=== PATIENT | female | born 1995 | race Caucasian/White ===

== ENCOUNTER 2019-12-20 05:35 | Outpatient (CLI) | payer MEDICAID ==
[~2019-12-20] VITALS: Ht 165 cm; Wt 103.8 kg
[2019-12-20] MEDS ORDERED: SERT100T8 PO (13:54)
[2019-12-20] MEDS ORDERED: DIPH25CA79 PO (13:54)
[2019-12-20] MEDS ORDERED: FAMO20TA3 PO (13:54)
[2019-12-20] MEDS ORDERED: PREN-8 PO (13:54)
[2019-12-26] MEDS ORDERED: DCS100C PO (07:19)
[2019-12-26] MEDS ORDERED: IBUP-844 PO (07:19)
[2019-12-26] MEDS ORDERED: ACHD5005 PO (07:19)
== END 2019-12-20 14:11 ==
LOC: PREOP 05:35
PROVIDERS: ATTEND Obstetrics & Gynecology
DX: Z01.818 Encounter for other preprocedural examination (principal)

== ENCOUNTER 2019-12-26 01:35 | Inpatient (IN) | payer MEDICAID ==
[2019-12-26] VITALS (10 sets, daily range): BP systolic 130–144; BP diastolic 67–93
[~2019-12-26] VITALS: Ht 165.1 cm; Wt 104.2 kg
[~2019-12-26 01:35] MED LIST: DIPH25CA79 PO; FAMO20TA3 PO; PREN-8 PO; SERT100T8 PO
[2019-12-26] MEDS ORDERED: ceFAZolin INJECTION 1,000 MG ONE (06:06)
[2019-12-26] MEDS ORDERED: METOCLOPRAMIDE INJ 10 MG/2 ML (REGLAN) ONE (06:06)
[2019-12-26] MEDS ORDERED: LACTATED RINGERS 1,000 ML IV ONE (06:06)
[2019-12-26] MEDS ORDERED: FAMOTIDINE 20MG/2ML IV (PEPCID) ONE (06:06)
[2019-12-26] MEDS ORDERED: CITRIC ACID/SOB CIT (BICITRA) 30 ML UDC ONE (06:06)
[2019-12-26] MEDS ORDERED: WATER (STERILE) FOR INJECTION 10 ML ONE (06:07)
[2019-12-26] MEDS ORDERED: LACTATED RINGERS 1,000 ML IV PRN ×2 (06:18)
--- NOTE | 2019-12-26 06:20 | NUR ---
SARAY KAPLAN presented to unit via AMBULATORY from ED, accompanied by S.O., with c/o PREVIOUS. SARAY KAPLAN weighed, gowned, voided, and to bed. EFHM and TOCO applied, VS taken. SARAY KAPLAN oriented to bed controls, call light, TV, heat, and A/C controls.
[2019-12-26] MEDS ORDERED: CATHETER FLUSH 10 ML SYR IV PRN (06:30)
[2019-12-26] MEDS ORDERED: FAMOTIDINE 20MG/2ML IV (PEPCID) IVP ONE (06:30)
[2019-12-26] MEDS ORDERED: METOCLOPRAMIDE INJ 10 MG/2 ML (REGLAN) IV ONE (06:30)
[2019-12-26] MEDS ORDERED: CITRIC ACID/SOB CIT (BICITRA) 30 ML UDC PO ONE (06:30)
[2019-12-26] MEDS ORDERED: ceFAZolin INJECTION 1,000 MG in WATER (STERILE) FOR INJECTION 10 ML IV ONE (06:30)
[2019-12-26 06:53] LABS: BASOPHILS % (AUTO) 0 % (0-10); EOSINOPHILS # (AUTO) 0.1 10^3/uL (0.0-0.3); EOSINOPHILS % (AUTO) 1 % (0-10); HEMATOCRIT 36 % (35-52); HEMOGLOBIN 12.4 G/DL (11.5-16.0); LYMPHOCYTES % (AUTO) 13 % (12-44); MEAN CORPUSCULAR HEMOGLOBIN 33 PG (25-34); MEAN CORPUSCULAR HGB CONC 35 G/DL (32-36); MEAN CORPUSCULAR VOLUME 94 FL (80-99); MEAN PLATELET VOLUME 9.6 FL (7.4-10.4); MONOCYTES # (AUTO) 0.6 X 10^3 (0.0-1.0); MONOCYTES % (AUTO) 8 % (0-12); NEUTROPHILS # (AUTO) 6.1 X 10^3 (1.8-7.8); NEUTROPHILS % (AUTO) 78 % (42-75); PLATELET COUNT 159 10^3/uL (130-400); WHITE BLOOD COUNT 7.7 10^3/uL (4.3-11.0)
[2019-12-26] MEDS ORDERED: BUPIVACAINE 0.5% 30 ML (SENSORCAINE) VIAL ONE (06:56)
[2019-12-26] MEDS ORDERED: fentaNYL INJECTION 100 MCG/2 ML AMP ONE (06:56)
[2019-12-26] MEDS ORDERED: OXYTOCIN PRE-MIX DRIP 1,000 ML IV ONE (06:56)
--- NOTE | 2019-12-26 06:57 | NUR ---
DR. NGUYEN AT BEDSIDE.
--- NOTE | 2019-12-26 07:05 | NUR ---
report received from gurdeep delcid; report also given to TECHNICAL EDUCATION TEACHER at this time.
--- NOTE | 2019-12-26 07:13 | History & Physical-OB ---
OB - Chief Complaint & HPI Date/Time Date of Admission: Date of Admission: Dec 26, 2019 at 06:12 Date seen by a Provider: Dec 26, 2019 Time Seen by a Provider: 07:10 Chief Complaint/History OB-Reason for Admission/Chief: Section Hx : 2 Hx Para: 1 Expected Date of Delivery: Dec 30, 2019 Gestational Age in Weeks: 39 Gestational Age in Days: 4 Indication for : desires repeat Admission Nurse Assessment Rev: Yes History of Labs O pos Antibody neg RNI RPR NR HBsAg NR HIV NR GC neg Allergies and Home Medications Allergies Coded Allergies: No Known Drug Allergies (Unverified , 12/26/19) Home Medications Diphenhydramine HCl 25 Mg Capsule, 25-50 MG PO HS PRN for CONGESTION, (Reported) Famotidine 20 Mg Tablet, 20 MG PO DAILY, (Reported) Vit W-Ca,Fe,FA(<1 mg) 1 Each Tablet, 1 EACH PO DAILY, (Reported) Sertraline HCl 100 Mg Tablet, 100 MG PO DAILY, (Reported) Patient Home Medication List Home Medication List Reviewed: Yes OB - History Hx of Present Care: Yes Ultrasounds: Normal mid trimester US Obstetrical Complications: None Medical Complications: None Delivery History Adverse Rxn to Tranfusion: No (N/A) Patient Past Medical History n/a Social History/Family History HIV/AIDS: No Recent Infectious Disease Expo: No Sexually Transmitted Disease: No Alcohol Use: Denies Use Recreational Drug Use: No OB - Admission Exam Physical Exam Vitals: Vital Signs 12/26/19 06:35 Temp 36.2 Pulse 108 Resp 20 Pulse Ox 98 O2 Delivery Room Air HEENT: NCAT Heart: Rhythm Normal Lungs: Clear Abdomen: Gravid Extremities: Normal Reflexes: Normal Heart Rate: 130's Accelerations: Accelerations Present Decelerations: No Decelerations Short Term Variability: Present Wood Bucker Variability: Average (6-25) Contractions on Admission: >10 Minutes Apart Intensity: Mild Labs Laboratory Tests Test 12/26/19 06:40 Range/Units White Blood Count 7.7 4.3-11.0 10^3/uL Red Blood Count 3.79 L 4.35-5.85 10^6/uL Hemoglobin 12.4 11.5-16.0 G/DL Hematocrit 36 35-52 % Mean Corpuscular Volume 94 80-99 FL Mean Corpuscular Hemoglobin 33 25-34 PG Mean Corpuscular Hemoglobin Concent 35 32-36 G/DL Red Cell Distribution Width 15.8 H 10.0-14.5 % Platelet Count 159 130-400 10^3/uL Mean Platelet Volume 9.6 7.4-10.4 FL Neutrophils (%) (Auto) 78 H 42-75 % Lymphocytes (%) (Auto) 13 12-44 % Monocytes (%) (Auto) 8 0-12 % Eosinophils (%) (Auto) 1 0-10 % Basophils (%) (Auto) 0 0-10 % Neutrophils # (Auto) 6.1 1.8-7.8 X 10^3 Lymphocytes # (Auto) 1.0 1.0-4.0 X 10^3 Monocytes # (Auto) 0.6 0.0-1.0 X 10^3 Eosinophils # (Auto) 0.1 0.0-0.3 10^3/uL Basophils # (Auto) 0.0 0.0-0.1 10^3/uL OB - Assessment/Plan/Diagnosis Assessment Assessment: section Admission Dx 24 yo @ 39 weeks Previous section Admission Status: Inpatient Order (span 2 midnights) Reason for Inpatient Admission: Repeat Plan Plan: Section TERRANCE YOUNGER DO Dec 26, 2019 07:13
[2019-12-26] MEDS ORDERED: TETANUS,DIPTH,PERTUSS P/F (BOOSTRIX) 0.5 ML VIAL IM SCH (07:15)
[2019-12-26] MEDS ORDERED: ONDANSETRON 4 MG/2 ML (SDV) Z0FRAN IVP PRN (07:15)
[2019-12-26] MEDS ORDERED: MEASLES,MUMPS,RUBELLA 1 EA INJ SC SCH (07:15)
--- NOTE | 2019-12-26 07:15 | NUR ---
pt walked to OR with WEBMETHODS ARCHITECT at this time.
--- NOTE | 2019-12-26 07:17 | Discharge Inst-Women's Service ---
Discharge Inst-Women's Serv Depart Medication/Instructions New, Converted or Re-Newed RX: RX on Chart Final Diagnosis POD 2 RLTCS Problems Reviewed?: Yes Consults/Follow Up Additional Follow Up: Yes Orders/Referrals Dr. Grove in 7-10 days and in 6 weeks Activity Activity: Activity as Tolerated Driving Instructions: No Driving for 1 Week NO SMOKING: NO SMOKING Nothing Inside Vagina: No Douching, No Bud, No Tampons Diet Discharge Diet: No Restrictions Symptoms to Report to : Bleeding Excessive, Pain Increased, Fever Over 101 Degrees F, Vaginal Bleeding Increase, Questions/Concerns For Any Problems or Questions: Contact Your Physician Skin/Wound Care Infection Signs and Symptoms: Increased Redness, Foul Odor of Wound, Increased Drainage, Skin Itchy or Has a Rash, Increased Swelling, Temperature Above 101 F Operative Area Clean and Dry: Keep Incision Clean/Dry Stitches/Darcie/Dermabond: Dermabond, Care of Stitches Bathing Instructions: TERRANCE Rubio DO Dec 26, 2019 07:17
[2019-12-26] MEDS ORDERED: DCS100C PO (07:19)
[2019-12-26] MEDS ORDERED: IBUP-844 PO (07:19)
[2019-12-26] MEDS ORDERED: ACHD5005 PO (07:19)
[2019-12-26] MEDS ORDERED: PHENYLEPHRINE 100 MCG/ML 10 ML (ANESTHESIA) SYR ONE (07:53)
--- NOTE | 2019-12-26 08:29 | NUR ---
Pt in RR at this time. This RN remains at bedside.
--- NOTE | 2019-12-26 08:38 | OPERATIVE REPORT ---
DATE OF SERVICE: PREOPERATIVE DIAGNOSES: 1. A 24-year-old G2, P1 at 39 weeks and three days gestation. 2. Previous section. POSTOPERATIVE DIAGNOSES: 1. A 24-year-old G2, P1 at 39 weeks and three days gestation. 2. Previous section. PROCEDURE PERFORMED: Repeat low transverse section. SURGEON: [place] DO MEASUREMENT DEPARTMENT CHIEF CLERK: Maryse Arriaga DNP, who was necessary for manipulation and retraction throughout the procedure. ANESTHESIA: Spinal. ESTIMATED BLOOD LOSS: 500 mL. URINE OUTPUT: 125 mL clear at the end of procedure. FLUIDS: Two liters of lactated Ringer's solution. FINDINGS: A live female weighing 8 pounds 10 ounces, Apgars of 8 and 9. Grossly normal appearing uterus, bilateral fallopian tubes and ovaries. SPECIMEN SENT: None. INDICATIONS FOR PROCEDURE: This 24-year-old female is a patient with a late transfer of care for consideration of the ; however, we decided in the office after discussing the risks of the that repeat would be the better option out of the two. Risks of the procedure were discussed with the patient in detail including risk of bleeding, infection, damage to surrounding structures including, but not limited to bowel, bladder, ureter, kidneys, possible need for reoperation, postoperative complications that may occur, recovery timeframe, risk from anesthesia and even . After everything was discussed with the patient in detail, consent was obtained in the preoperative area and the patient was taken to the operating room. OPERATIVE REPORT IN DETAIL: Once in the operating room, spinal anesthesia was found to be adequate. She was placed in supine position with leftward tilt, prepped and draped in a normal sterile fashion where time out was performed and anesthesia was tested. I then made a Pfannenstiel skin incision through the previously existing scar using knife and carried it down to underlying fascia using Bovie cautery. The fascial incision extended laterally using Bovie cautery. The superior aspect of the fascial incision was then grasped with Justin clamps, tented up and dissected off the underlying rectus muscles. The inferior aspect of the fascial incision was then grasped with Justin clamps, tented upward and dissected off the underlying rectus muscles. Rectus muscle was then dissected down the midline using sharp and blunt dissection, which exposed the peritoneum, which I entered bluntly and extended using blunt traction. Once peritoneal access was achieved, I placed an Tanner ring retractor in the peritoneal incision, which offers excellent lateral sidewall retraction. I identified the lower uterine segment, which was found to be thinned out. There are some vesicouterine adhesions noted that were taken down using the knife After that was done, I made a low transverse incision to the vesicouterine peritoneum and bluntly dissected off the lower uterine segment, creating a bladder flap. I then proceeded with my myotomy until membranes were visualized, which fornix extended the uterine incision laterally and superiorly using bandage scissors. Amniotomy was performed using Allis clamp. Clear fluid was noted. The was found in vertex presentation. With gentle fundal pressure, the 's head was elevated up the incision, where it was delivered through the incision. The nares and oropharynx were bulb suctioned. Anterior and posterior shoulders were delivered. Infant was then brought to the operative field where cord was doubly clamped and cut and was handed off to waiting nurses in attendance. Cord blood was collected. Three-vessel cord with intact placenta was delivered spontaneously thereafter. Cord blood was collected. Three-vessel cord with intact placenta was delivered spontaneously thereafter. IV Pitocin was initiated to facilitate uterine contraction. Uterine fundus became firmer with bimanual massage. Uterus was then exteriorized and cleared of all endometrial clots and debris. I then proceeded with closing the uterine incision using 0 Vicryl suture in a running locked fashion. Second layer of imbricating 0 Monocryl was placed. Excellent hemostasis was noted after doing this. I then placed the uterus back in the pelvis and copiously irrigated the pelvis using normal saline. No active bleeding noted from any of my dissection planes. I placed Interceed antiadhesive over my low transverse incision and then proceeded with removing the Tanner ring retractor and reapproximated the peritoneum using 3-0 Vicryl suture in running fashion. The rectus muscle was reapproximated using 3-0 Vicryl suture in an interrupted fashion. The fascia was reapproximated using 0 Vicryl suture in a running fashion. Subcutaneous tissue was reapproximated using 3-0 plain in an interrupted subcutaneous stitch and skin reapproximated using 4-0 Monocryl subcuticular. Dermabond was applied to incision and sterile dressing with adhesive white tape. The patient tolerated the procedure well and sent to recovery area in stable condition. Lap and sponge counts were correct at the end of the procedure. Instrument counts were correct as well. Two grams of Ancef were given preoperatively for infection prophylaxis. Job ID: [id number] DocumentID: [id number] Dictated Date: 12/26/2019 08:19:04 Marble Installer Supervisor Date: 12/26/2019 08:38:24 Dictated By: DO DUDLEY MARIANO
[2019-12-26] MEDS: OXYTOCIN PRE-MIX DRIP 500 ML IV SCH ×2 (08:59→13:00)
[2019-12-26] MEDS: KETOROLAC 30 MG/ML VIAL IV SCH ×3 (09:22→21:23)
--- NOTE | 2019-12-26 11:35 | NUR ---
REPORT RECEIVED FROM ALBARO ROMANO RN. CARE ASSUMED OF THIS PATIENT.
--- NOTE | 2019-12-26 12:30 | NUR ---
FF U/1. BLADDER FILLING. VAG FLOW LT RUBRA.
[2019-12-26] MEDS: DOCUSATE SODIUM 100 MG (COLACE) CAP PO SCH ×2 (12:48→21:23)
[2019-12-26] MEDS: HYDROcodone/APAP 5 MG/325 MG (LORTAB) TAB PO PRN ×3 (12:49→23:36)
--- NOTE | 2019-12-26 13:00 | NUR ---
VSS. ASSESSMENT COMPLETED. UP TO THE BATHROOM. VOIDED 200 MLS WITHOUT PROBLEMS. PERICARE WITH PAD/UNDERWEAR APPLIED. BACK TO BED WITHOUT PROBLEMS.
[2019-12-26] MEDS ORDERED: ceFAZolin 1,000 MG/SWFI 10 ML IV PUSH IV ONE ×2 (13:15)
--- NOTE | 2019-12-26 14:00 | NUR ---
STATES WELL. REMAINS IN MOM'S ROOM. GOOD INTERACTION NOTED.
--- NOTE | 2019-12-26 16:30 | NUR ---
SHOWERED WITHOUT PROBLEMS. AMBULATING WELL IN ROOM. VOIDING WITHOUT DIFFICULTY. S.O. AT BEDSIDE. Addendum: 12/26/19 at 1712 by TAYLER DING RN ERROR. PT DID NOT SHOWER BUT IS AMBULATING WELL IN ROOM AND VOIDING WITHOUT PROBLEMS. S.O. IS AT BEDSIDE.
--- NOTE | 2019-12-26 17:36 | NUR ---
TDAP AND MMR VACCINES GIVEN.
--- NOTE | 2019-12-26 18:25 | NUR ---
LORTAB 5/325 2 TABS P.O. FOR C/O ABD PAIN AND RIGHT SHOULDER PAIN.
[2019-12-26] MEDS ORDERED: SIMETHICONE 80 MG (MYLICON) CHEW ONE (18:34)
[2019-12-26] MEDS: SIMETHICONE 80 MG (MYLICON) CHEW PO PRN (18:39)
--- NOTE | 2019-12-26 18:39 | NUR ---
SIMETHICONE 80 MG CHEWED FOR GAS PAIN.
--- NOTE | 2019-12-26 19:00 | NUR ---
PT HAD A LARGE SOFT BM.
[2019-12-26] MEDS: CATHETER FLUSH 10 ML SYR IV SCH ×2 (20:01→21:23)
[2019-12-27] MEDS: SIMETHICONE 80 MG (MYLICON) CHEW PO PRN ×3 (00:38→20:57)
[2019-12-27] MEDS: KETOROLAC 30 MG/ML VIAL IV SCH (03:04)
[2019-12-27 03:05] VITALS: BP 132/85
[2019-12-27] MEDS: CATHETER FLUSH 10 ML SYR IV SCH (03:05)
[2019-12-27 06:51] LABS: BASOPHILS % (AUTO) 0 % (0-10); EOSINOPHILS % (AUTO) 0 % (0-10); HEMATOCRIT 33 % (35-52); HEMOGLOBIN 11.3 G/DL (11.5-16.0); LYMPHOCYTES # (AUTO) 0.7 X 10^3 (1.0-4.0); LYMPHOCYTES % (AUTO) 7 % (12-44); MEAN CORPUSCULAR HEMOGLOBIN 33 PG (25-34); MEAN CORPUSCULAR HGB CONC 35 G/DL (32-36); MEAN CORPUSCULAR VOLUME 95 FL (80-99); MEAN PLATELET VOLUME 9.9 FL (7.4-10.4); MONOCYTES # (AUTO) 0.7 X 10^3 (0.0-1.0); MONOCYTES % (AUTO) 7 % (0-12); NEUTROPHILS % (AUTO) 86 % (42-75); PLATELET COUNT 127 10^3/uL (130-400); WHITE BLOOD COUNT 10.5 10^3/uL (4.3-11.0)
--- NOTE | 2019-12-27 07:34 | Postpartum Progress Note ---
Note Note Day # 1 Subjective: Patient is without complaints. Ambulating, voiding. Tolerating a regular diet without nausea or vomiting. Normal lochia. Pain is well controlled with oral pain medications. Objective: Physical Exam: General - Alert and oriented, no apparent distress Abdomen - Soft, appropriately tender to palpation, non-distended, fundus firm at umbilicus Extremities - no edema, negative Adrian's bilaterally Incision- c/d/i Assessment: POD 1 RLTCS Acute blood loss anemia Plan: Routine care. Encourage breast feeding. Encourage ambulation. Ferrous sulfate supplementation. Plan for discharge tomorrow Vitals - Labs Vital Signs - I&O Vital Signs Date Time Temp Pulse Resp B/P (MAP) Pulse Ox O2 Delivery O2 Flow Rate FiO2 12/27/19 03:05 36.4 97 18 132/85 (101) 97 Room Air 12/26/19 23:36 36.0 99 18 130/79 (96) 97 Room Air 12/26/19 19:40 36.6 106 18 144/89 (107) 97 Room Air 12/26/19 16:00 36.5 105 18 130/81 (97) 97 Room Air 12/26/19 14:57 Room Air 12/26/19 12:30 36.5 99 18 132/72 (92) 97 Room Air 12/26/19 09:30 Room Air 12/26/19 09:30 36.9 17 134/87 (103) 98 Room Air 12/26/19 09:15 36.9 18 137/93 (108) 99 Room Air 12/26/19 09:15 Room Air 12/26/19 09:00 36.6 18 134/78 (96) 98 Room Air 12/26/19 09:00 Room Air 12/26/19 08:45 Room Air 12/26/19 08:45 36.5 18 143/90 (107) 100 Room Air 12/26/19 08:30 36.4 16 137/84 (101) 100 Room Air 12/26/19 08:30 Room Air I & O 12/27/19 07:00 Intake Total 3150 ml Output Total 2925 ml Balance 225 ml Labs Laboratory Tests 12/27/19 06:30: White Blood Count 10.5, Red Blood Count 3.44L, Hemoglobin 11.3L, Hematocrit 33L, Mean Corpuscular Volume 95, Mean Corpuscular Hemoglobin 33, Mean Corpuscular Hemoglobin Concent 35, Red Cell Distribution Width 15.7H, Platelet Count 127L, Mean Platelet Volume 9.9, Neutrophils (%) (Auto) 86H, Lymphocytes (%) (Auto) 7L, Monocytes (%) (Auto) 7, Eosinophils (%) (Auto) 0, Basophils (%) (Auto) 0, Neutrophils # (Auto) 9.0H, Lymphocytes # (Auto) 0.7L, Monocytes # (Auto) 0.7, Eosinophils # (Auto) 0.0, Basophils # (Auto) 0.0 Microbiology 12/26/19 MRSA Screen - Final, Complete MRSA not isolated TERRANCE YOUNGER DO Dec 27, 2019 07:34
[2019-12-27 08:00] VITALS: BP 130/88
--- NOTE | 2019-12-27 08:00 | NUR ---
A.M. ASSESSMENT COMPLETED. VSS. STORK MEAL SERVED.
--- NOTE | 2019-12-27 08:20 | NUR ---
DR. STEPHEN IN TO SEE .
[2019-12-27] MEDS: DOCUSATE SODIUM 100 MG (COLACE) CAP PO SCH ×2 (08:27→20:57)
[2019-12-27] MEDS: IBUPROFEN 600 MG (MOTRIN) TAB PO SCH ×3 (08:27→20:57)
[2019-12-27] MEDS: HYDROcodone/APAP 5 MG/325 MG (LORTAB) TAB PO PRN ×3 (08:29→20:57)
--- NOTE | 2019-12-27 10:36 | Anesthesia-Regional Post-Op ---
Regional Patient Condition Mental Status: Alert, Oriented x3 Circulation: Same as Pre-Op Headache: Absent Sensation: Full Recovery Motor Block: Absent Post Op Complications Complications None Follow Up Care/Instructions Patient Instructions None needed. Anesthesia/Patient Condition Patient is doing well, no complaints, stable vital signs, no apparent adverse anesthesia problems. No complications reported per nursing. D/C home per [facility] Criteria: No CHARITO KELLER CRNA Dec 27, 2019 10:36
--- NOTE | 2019-12-27 10:40 | NUR ---
CARING FOR INFANT IN ROOM. GOOD INTERACTION NOTED. SPOUSE AT BEDSIDE.
--- NOTE | 2019-12-27 12:00 | NUR ---
PT AND S.O. AMBULATING IN THE LEMUS PUSHING IN THE CRIB. MOVES WELL.
[2019-12-27 14:00] VITALS: BP 136/86
--- NOTE | 2019-12-27 14:18 | NUR ---
LORTAB 2 TABS P.O. FOR C/O ABD PAIN.
--- NOTE | 2019-12-27 18:30 | NUR ---
PT CONTINUES TO FORGET TO DO INCENTIVE SPIROMETRY. ENCOURAGED TO DO Q 2 HOURS.
[2019-12-27 20:57] VITALS: BP 136/87
[2019-12-28 03:12] VITALS: BP 137/82
[2019-12-28] MEDS: IBUPROFEN 600 MG (MOTRIN) TAB PO SCH ×2 (03:12→08:32)
[2019-12-28] MEDS: HYDROcodone/APAP 5 MG/325 MG (LORTAB) TAB PO PRN ×2 (03:12→10:51)
[2019-12-28] MEDS: DOCUSATE SODIUM 100 MG (COLACE) CAP PO SCH (08:32)
[2019-12-28 08:35] VITALS: BP 142/86
[2019-12-28] MEDS: SIMETHICONE 80 MG (MYLICON) CHEW PO PRN (08:35)
--- NOTE | 2019-12-28 08:35 | Postpartum Progress Note ---
Note Note Day # 2 Subjective: Patient is without complaints. Ambulating, voiding. Tolerating a regular diet without nausea or vomiting. Normal lochia. Pain is well controlled with oral pain medications. Objective: Physical Exam: General - Alert and oriented, no apparent distress Abdomen - Soft, appropriately tender to palpation, non-distended, fundus firm at umbilicus Extremities - no edema, negative Adrian's bilaterally Incision- c/d/i Assessment: POD 2 RLTCS Plan: Routine care. Encourage breast feeding. Encourage ambulation. Ferrous sulfate supplementation. Plan for discharge today Vitals - Labs Vital Signs - I&O Vital Signs Date Time Temp Pulse Resp B/P (MAP) Pulse Ox O2 Delivery O2 Flow Rate FiO2 12/28/19 03:12 36.8 89 18 137/82 (100) 98 Room Air 12/27/19 20:57 37.3 110 18 136/87 (103) 98 Room Air 12/27/19 14:00 37.0 102 18 136/86 (103) 98 Room Air l I & O 12/28/19 07:00 Intake Total 2840 ml Output Total 1700 ml Balance 1140 ml Labs Microbiology 12/26/19 MRSA Screen - Final, Complete MRSA not isolated TERRANCE YOUNGER DO Dec 28, 2019 8:35 am
[2019-12-28 12:00] VITALS: BP 142/86
--- NOTE | 2019-12-28 12:00 | NUR ---
Oral and written instructions given. Pt verbalizes understanding. Pt requested abdominal blinder and this nurse provided. To exit via wheelchair accompanied by this RN and .
== END 2019-12-28 12:00 | disposition home or self-care (01) | DRG 787 ==
LOC: LDRP 06:12
PROVIDERS: ADMIT Obstetrics & Gynecology; ATTEND Obstetrics & Gynecology
PROC: 10D00Z1 Extraction of Products of Conception, Low, Open Approach (ICD-10-PCS; principal; 2019-12-26 07:35)
DX: O34.211 Maternal care for low transverse scar from previous cesarean delivery (principal); D62 Acute posthemorrhagic anemia; O90.81 Anemia of the puerperium; Z37.0 Single live birth; Z3A.39 39 weeks gestation of pregnancy; Z23 Encounter for immunization
CPT/HCPCS: 36415; 85025; 85027; 86850; 86900; 86901; 87081; 90707; 90715; 94664